=== PATIENT | male | born 1980 | race Two or more races ===

== ENCOUNTER 2018-07-04 16:21 | Emergency (ER) | payer MEDICAID ==
[~2018-07-04] VITALS: Ht 180.3 cm; Wt 77.1 kg
[2018-07-04] MEDS ORDERED: NKM (16:27)
[2018-07-04 16:32] VITALS: BP 125/85
--- NOTE | 2018-07-04 16:34 | NUR ---
ED Nurse Note: Patient walked into ED c/o of a headache that has been going for 3 days now, patient states that it happened as soon as the patient was getting a blood draw and has barely ate ever since, patient locates his pain towards the side of his temples. denies any loss of vision, just a throbbing pain
[2018-07-04] MEDS ORDERED: Ketorolac 30mg Inj IM ONE (16:45)
--- NOTE | 2018-07-04 16:51 | Emergency Room Report ---
History of Present Illness General Chief Complaint: Headache Source: Patient Present Illness HPI 38-year-old male patient presents the ER complaining of headache for the past 3 days. Patient reports that the headache is in his bilateral temples and radiates to his neck. Reports "I think I am having a migraine". Reports nausea and vomiting during this time. Reports no vomiting up food, states able to tolerate p.o. fluids. Denies hematemesis or coffee-ground emesis. Denies fever. Denies recent travel outside the country. Reports photophobia. Denies vision changes. Denies phonophobia. Denies fever, chest pain, shortness of breath. Denies history of diabetes or kidney disease. Denies drug use. Denies dysuria, hematuria. Denies history of high blood pressure. Denies history of seizures. States has taken Excedrin without relief of symptoms. Reports hx of similar VU in the past. Allergies: Coded Allergies: No Known Allergies (Unverified , 07/04/18) Patient History Past Medical History: see triage record Reviewed Nursing Documentation: PMH: Agreed; PSxH: Agreed Nursing Documentation-PMH Past Medical History: No History, Except For Review of Systems All Other Systems: negative except mentioned in HPI Physical Exam Vital Signs Date Time Temp Pulse Resp B/P (MAP) Pulse Ox O2 Delivery O2 Flow Rate FiO2 07/04/18 16:25 97.9 98 17 130/88 96 Room Air Sp02 EP Interpretation: reviewed, normal General Appearance: well appearing, no apparent distress, alert, GCS 15, non- toxic Head: normocephalic, atraumatic, other - no TTP over maxillary or frontal sinuses Eyes: bilateral eye normal inspection, bilateral eye PERRL ENT: hearing grossly normal, normal pharynx, no angioedema, normal voice, uvula midline, moist mucus membranes Neck: full range of motion, no meningismus, no bony tend Respiratory: lungs clear, normal breath sounds, no rhonchi, no respiratory distress, no accessory muscle use, no wheezing, speaking full sentences Cardiovascular #1: regular rate, rhythm, no edema Gastrointestinal: non tender, soft, no mass, non-distended, no guarding, no rebound Genitourinary: no CVA tenderness Musculoskeletal: back normal, digits/nails normal, gait/station normal, normal range of motion, non-tender Neurologic: alert, oriented x3, responsive, waiter/waitress tourist class III-XII nml as tested, motor strength/tone normal, sensory intact, cerebellar normal, normal gait, speech normal, other - Negative Kernig, negative Brudzinski Psychiatric: mood/affect normal Skin: no rash Lymphatic: no adenopathy Medical Decision Making PA Attestation Dr. Rosales is my supervising Physician whom patient management has been discussed with. Diagnostic Impression: Primary Impression: Headache ER Course Pt presents to ED c/o headache. DDX considered but are not limited to migraine, cluster VU, tension VU, meningitis, ICH, influenza, SAH. Negative Kernig, negative Brudzinski, patient afebrile, low suspicion for meningitis. No focal neuro deficits, cranial nerves intact as tested, low suspicion for SAH , does not require CT head at this time. VITAL SIGNS are WNL, patient is afebrile ER COURSE Provide patient with Toradol, Reglan, Benadryl and ice pack. Patient reports pain symptoms improved while in the ER. Reports neck pain symptoms improved. Patient reports pain improved. Patient is AOx3, neurologically intact, nontoxic appearing, and ambulatory. DISCHARGE: -Rx provided Fioricet At this time pt is stable for d/c to home. Patient is resting comfortably, in no acute distress, nontoxic appearing, talking and smiling. Will provide with patient care instructions and any necessary prescriptions. Patient to take medication as instructed. Care plan and follow-up instructions provided. Patient questions asked and answered. Patient instructed to follow-up with primary care provider in the next 3 days and discuss further referral with PCP to neurologist. ER precautions given. Patient instructed to return to ER immediately for any new or worsening of symptoms including but not limited to fever, neck stiffness , vision changes, and neurological symptoms. - Please note that this Emergency Department Report was dictated using [employer] strategic sourcing technology software, occasionally this can lead to erroneous entry secondary to interpretation by the dictation equipment. Last Vital Signs Date Time Temp Pulse Resp B/P (MAP) Pulse Ox O2 Delivery O2 Flow Rate FiO2 07/04/18 16:32 97.9 82 17 125/85 96 Room Air Status: improved Disposition: HOME, SELF-CARE Condition: Stable Scripts Acetamin/Butalbital/Caffeine* (FIORICET*) 1 Ea Tab 1 TAB ORAL Q6H, #15 TAB 0 Refills Prov: Abisai Foley 07/04/18 Patient Instructions: General Headache Without Cause, Migraine Headache Additional Instructions: Followup with primary care provider in 3 -5 days. Discussed referral to neuro for headache symptoms. Take medications as directed. Patient questions asked and answered. ER precautions given, patient instructed to return to ER immediately for any new or worsening of symptoms. Abisai Foley Jul 04, 2018 16:51
--- NOTE | 2018-07-04 17:34 | NUR ---
ED Nurse Note: no change in pain/migrain, Butch HERNANDEZ made aware.
[2018-07-04] MEDS ORDERED: FIORICET1 EA ORAL (18:01)
[2018-07-04 18:09] VITALS: BP 125/85
--- NOTE | 2018-07-04 18:09 | NUR ---
ED Nurse Note: PT is medically cleared per ERMD order. pt is stable for transfer. pt status condition and vital signs are reported to ERMD prior to DC. pt vital signs are stable. pt is alert and oriented times 4. pt left with all belongings, including DC notes and prescriptions. pt was able to teach back and understands DC notes and prescription. pt is instructed to follow up with primary MD as soon as possible, pt is instructed to return to ER if any variance in condition. ID band removed
== END 2018-07-04 18:15 | disposition home or self-care (01) ==
LOC: EMR 18:10
DX: R51 Headache (principal)
CPT/HCPCS: 96372; 99283; J1885

== ENCOUNTER 2019-12-10 11:15 | Emergency (ER) | payer MEDICAID ==
[~2019-12-10] VITALS: Ht 180.3 cm; Wt 77.1 kg
[~2019-12-10 11:15] MED LIST: FIORICET1 EA ORAL; NKM
[2019-12-10 11:24] VITALS: BP 127/88
[2019-12-10] MEDS ORDERED: GABAPENTIN600 MG ORAL (11:26)
--- NOTE | 2019-12-10 11:34 | NUR ---
ED Nurse Note: Pt from home walked in due to left flank pain with blood tinged urine that started last night. Pt reports that when he urinates it feels that there is sharp pain coming out from urine. Denies fever or chills. AAO x4, ambulatory with non labored breathing.
--- NOTE | 2019-12-10 11:43 | Emergency Room Report ---
History of Present Illness General Chief Complaint: Male Urogenital Problems Source: Patient Present Illness [facility] Disclaimer: Please note that this report is being documented using [employer] technology. This can lead to erroneous entry secondary to incorrect interpretation by the dictating instrument. HPI: 39-year-old male presents for evaluation of flank pain. Symptoms present 2 days. He noted an aching and then sharp pain over the left flank that radiated in the left groin. He noted pain with urination over the past few days as well sweats without objective fever readings. Denies pain in the testicles or testicular injury. Reports dark blood-tinged urine. Reports nausea and intermittent vomiting though is able to still eat and drink. Denies diarrhea. Denies chest pain, shortness of breath, recent sick contacts, URI symptoms. No prior history of abdominal surgeries. No prior history of kidney stones though there is a family history. Denies alcohol or drug use. Denies other medical conditions. No exacerbating relieving factors. Pains appears to be getting worse. 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 EOMI. Cardiovascular: RRR. S1 and S2 normal. No murmur appreciated Resp: Normal work of breathing. No cough, wheezing or crackles appreciated Abdomen: Abdomen is soft, nondistended. Tenderness palpation in the left lower quadrant left groin without rebound or mass. Left-sided flank tenderness with percussion. No tenderness in the upper quadrants or the right lower quadrant or right flank. Skin: Intact. No abrasions, laceration or rash over the exposed skin MSK: Normal tone and bulk. Moving all extremities. No obvious deformity. Neuro: Awake and alert. Mentating appropriately. Medical Decision Making Diagnostic Impression: Primary Impression: Colitis Additional Impressions: Nephrolithiasis Prostatitis ER Course This a 39-year-old male presenting for evaluation of 2 days worsening left- sided flank pain and dysuria. Differential includes was not limited to nephrolithiasis, pyelonephritis, cystitis, pancreatitis, gastritis, gastroenteritis, cholecystitis, bowel obstruction, gas, hernia. History and physical exam most consistent with nephrolithiasis will obtain a noncontrast CT scan as well as broad labs. Patient was given IV fluids, antiemetics, Toradol. 1400: CT did not find acute evidence of nephrolithiasis however there was blood in his urine. The prostate was noted to be enlarged and the patient reports some recent urinary hesitancy and dysuria but this had resolved. He is monogamous with one sexual partner and denies any STI symptoms. There is also noted to be some colonic thickening in the distal colon center for either colitis or possible neoplasm. The appendix was noted to be prominent however the patient has no clinical signs of appendicitis. He is feeling better after receiving medication for his pain. Patient will be treated with IM Rocephin, oral Zithromax and continued on ciprofloxacin for prostatitis possibly colitis. Patient is here to establish a primary care provider but knows when in the area and will be seen as soon as possible. I instructed him to ask for referral to urology regarding his prostate and gastroenterology regarding the CT findings. Copies of his labs imaging were provided in his discharge paperwork. He stable for outpatient follow-up. Instructed to return with any new or worsening symptoms. Laboratory Tests Test 12/10/19 12:00 White Blood Count 7.9 K/UL (4.8-10.8) Red Blood Count 5.61 M/UL (4.70-6.10) Hemoglobin 16.5 G/DL (14.2-18.0) Hematocrit 50.7 % (42.0-52.0) Mean Corpuscular Volume 90 FL (80-99) Mean Corpuscular Hemoglobin 29.5 PG (27.0-31.0) Mean Corpuscular Hemoglobin Concent 32.7 G/DL (32.0-36.0) Red Cell Distribution Width 11.6 % (11.6-14.8) Platelet Count 177 K/UL (150-450) Mean Platelet Volume 7.7 FL (6.5-10.1) Neutrophils (%) (Auto) 60.0 % (45.0-75.0) Lymphocytes (%) (Auto) 24.6 % (20.0-45.0) Monocytes (%) (Auto) 12.6 % (1.0-10.0) H Eosinophils (%) (Auto) 2.1 % (0.0-3.0) Basophils (%) (Auto) 0.7 % (0.0-2.0) Urine Color Yellow Urine Appearance Slightly cloudy Urine pH 5 (4.5-8.0) Urine Specific [place] 1.020 (1.005-1.035) Urine Protein 1+ (NEGATIVE) H Urine Glucose (UA) Negative (NEGATIVE) Urine Ketones Negative (NEGATIVE) Urine Blood 5+ (NEGATIVE) H Urine Nitrite Negative (NEGATIVE) Urine Bilirubin Negative (NEGATIVE) Urine Urobilinogen Normal MG/DL (0.0-1.0) Urine Leukocyte Esterase 1+ (NEGATIVE) H Urine RBC 40-60 /HPF (0 - 0) H Urine WBC 2-4 /HPF (0 - 0) Urine Squamous Epithelial Cells Occasional /LPF Urine Bacteria Occasional /HPF (NONE) Urine Mucus Many /LPF (NONE/OCC) H Sodium Level 139 MMOL/L (136-145) Potassium Level 4.3 MMOL/L (3.5-5.1) Chloride Level 103 MMOL/L (98-107) Carbon Dioxide Level 27 MMOL/L (21-32) Anion Gap 9 mmol/L (5-15) Blood Urea Nitrogen 19 mg/dL (7-18) H Creatinine 1.3 MG/DL (0.55-1.30) Estimated Glomerular Filtration Rate > 60 mL/min (>60) Glucose Level 102 MG/DL (74-106) Calcium Level 9.2 MG/DL (8.5-10.1) Total Bilirubin 0.6 MG/DL (0.2-1.0) Aspartate Amino Transferase (AST) 64 U/L (15-37) H Alanine Aminotransferase (ALT) 189 U/L (12-78) H Alkaline Phosphatase 57 U/L (46-116) Total Protein 8.0 G/DL (6.4-8.2) Albumin 4.6 G/DL (3.4-5.0) Globulin 3.4 g/dL Albumin/Globulin Ratio 1.4 (1.0-2.7) Lipase 115 U/L (73-393) CT/MRI/US Diagnostic Results CT/MRI/US Diagnostic Results : Impression Procedure: CT Abdomen Pelvis WO Contrast Indication: Flank pain Technique: Spiral acquisitions obtained through the abdomen and pelvis. No oral or IV contrast utilized, per urinary stone protocol. Multiplanar reconstructions were generated. Total dose length product 225 mGycm. CTDIvol(s) 4 mGy. Dose reduction achieved using automated exposure control Comparison: none Findings: No renal or ureteral calculi, hydronephrosis, or hydroureter demonstrated. Lack of IV contrast limits assessment of the renal parenchyma. No definite renal parenchymal mass or cyst demonstrated. The prostate is enlarged, measuring 4.9 cm transverse dimension. There is focal thickening of the distal descending colon wall. There is some surrounding infiltration of the periappendiceal fat. The proximal and distal ends of the area of thickening are fairly well marginated. The appendix is prominent in caliber, appears to be filled with dense material likely representing multiple appendicoliths. It measures proximally C7 millimeters in diameter. There is equivocal very slight infiltration of the periappendiceal fat. A few gas bubbles are seen within the appendiceal lumen. No evidence of colonic diverticulosis or diverticulitis. No small bowel distention. No free or loculated intraperitoneal gas or fluid is evident. Lack of IV contrast limits assessment of the other solid organs. The liver, gallbladder, bile ducts, pancreas, spleen, adrenals are unremarkable. No retroperitoneal or mesenteric mass or adenopathy. No pelvic mass or adenopathy. Minimal atelectatic changes are seen at the lung bases. Impression: Wall thickening of the distal colon. This is suspicious for colitis. Given the somewhat focal nature and well-defined margins, the possibility of neoplasm should also be considered. Negative for evidence of urinary stone disease Prominent prostate, unusually prominent for age. Prominent appendix containing numerous appendicoliths. Doubt but cannot exclude early acute appendicitis. Correlate with clinical findings. Findings discussed by phone with Dr. Olmedo in the emergency room at the time of interpretation The CT scanner at [facility] is accredited by the [employer] and the scans are performed using protocols designed to limit radiation exposure to as low as reasonably achievable to attain images of sufficient resolution adequate for diagnostic evaluation. Dictated By: Kamaljit Devlin MD Electronically Signed By: Kamaljit Devlin MD Signed Date/Time 12/10/19 1402 CC: Bin Olmedo MD Last Vital Signs Date Time Temp Pulse Resp B/P (MAP) Pulse Ox O2 Delivery O2 Flow Rate FiO2 12/10/19 11:24 98.4 110 19 127/88 (101) 99 Disposition: HOME, SELF-CARE Condition: Stable Scripts Ciprofloxacin Hcl* (CIPROFLOXACIN HCL*) 500 Mg Tablet 500 MG ORAL Q12H for 14 Days, #28 TAB 0 Refills Prov: Bin Olmedo MD 12/10/19 Hydrocodone Bit/Acetaminophen 5-325* (NORCO 5-325 TABLET*) 1 Each Tablet 1 TAB ORAL Q6H PRN for FOR PAIN, #10 TAB 0 Refills Prov: Bin Olmedo MD 12/10/19 Ibuprofen* (MOTRIN*) 600 Mg Tablet 600 MG ORAL Q6H PRN for For Pain, #30 TAB 0 Refills Prov: Bin Olmedo MD 12/10/19 Tamsulosin HCl (Flomax) 0.4 Mg Cap.er.24h 0.4 MG ORAL DAILY for 5 Days, #5 CAP Prov: Bin Olmedo MD 12/10/19 Bin Olmedo MD Dec 10, 2019 11:43
[2019-12-10] MEDS ORDERED: Ketorolac 30mg Inj IV ONE (11:45)
--- NOTE | 2019-12-10 12:08 | NUR ---
ED Nurse Note: Blood and urine collected then sent.
[2019-12-10 12:09] LABS: APPEARANCE,URINE SLIGHTLY CLOUDY; BILIRUBIN, URINE NEGATIVE (NEGATIVE); COLOR,URINE YELLOW; GLUCOSE, URINE (UA) NEGATIVE (NEGATIVE); KETONES,URINE NEGATIVE (NEGATIVE); LEUKOCYTE ESTERASE ,URINE 1+ (NEGATIVE); NITRITE,URINE NEGATIVE (NEGATIVE); PH,URINE 5 (4.5-8.0); PROTEIN,URINE 1+ (NEGATIVE); UROBILINOGEN,URINE NORMAL MG/DL (0.0-1.0)
[2019-12-10 12:11] LABS: BASOPHILS % (AUTO) 0.7 % (0.0-2.0); EOSINOPHILS % (AUTO) 2.1 % (0.0-3.0); HEMATOCRIT 50.7 % (42.0-52.0); HEMOGLOBIN 16.5 G/DL (14.2-18.0); LYMPHOCYTES % (AUTO) 24.6 % (20.0-45.0); MEAN CORPUSCULAR VOLUME 90 FL (80-99); MONOCYTES % (AUTO) 12.6 % (1.0-10.0); PLATELET COUNT 177 K/UL (150-450); RED BLOOD COUNT 5.61 M/UL (4.70-6.10); RED CELL DISTRIBUTION WIDTH 11.6 % (11.6-14.8); WHITE BLOOD COUNT 7.9 K/UL (4.8-10.8)
[2019-12-10 12:24] LABS: ANION GAP 9 mmol/L (5-15); BLOOD UREA NITROGEN 19 mg/dL (7-18); CALCIUM 9.2 MG/DL (8.5-10.1); CARBON DIOXIDE 27 MMOL/L (21-32); CHLORIDE 103 MMOL/L (98-107); CREATININE 1.3 MG/DL (0.55-1.30); POTASSIUM 4.3 MMOL/L (3.5-5.1); SODIUM 139 MMOL/L (136-145)
[2019-12-10 12:30] LABS: ALANINE AMINOTRANSFERASE 189 U/L (12-78); ALBUMIN 4.6 G/DL (3.4-5.0); ALBUMIN/GLOBULIN RATIO 1.4 (1.0-2.7); ALKALINE PHOSPHATASE 57 U/L (46-116); ASPARTATE AMINO TRANSFERASE 64 U/L (15-37); BILIRUBIN,TOTAL 0.6 MG/DL (0.2-1.0)
[2019-12-10 13:35] VITALS: BP 134/72
[2019-12-10] MEDS ORDERED: NORCO 5-325 TA1 EAC1 ORAL (13:53)
[2019-12-10] MEDS ORDERED: IBUPROFEN600 M1 ORAL (13:53)
[2019-12-10] MEDS ORDERED: FLOMAX0.4 MG ORAL (13:53)
[2019-12-10] MEDS ORDERED: Morphine Sulfate 2mg/ml Inj(IV/IM USE ONLY) IM ONE (14:00)
--- NOTE | 2019-12-10 14:08 | Diagnostic Imaging Report ---
Indication: Flank pain Technique: Spiral acquisitions obtained through the abdomen and pelvis. No oral or IV contrast utilized, per urinary stone protocol. Multiplanar reconstructions were generated. Total dose length product 225 mGycm. CTDIvol(s) 4 mGy. Dose reduction achieved using automated exposure control Comparison: none Findings: No renal or ureteral calculi, hydronephrosis, or hydroureter demonstrated. Lack of IV contrast limits assessment of the renal parenchyma. No definite renal parenchymal mass or cyst demonstrated. The prostate is enlarged, measuring 4.9 cm transverse dimension. There is focal thickening of the distal descending colon wall. There is some surrounding infiltration of the periappendiceal fat. The proximal and distal ends of the area of thickening are fairly well marginated. The appendix is prominent in caliber, appears to be filled with dense material likely representing multiple appendicoliths. It measures proximally C7 millimeters in diameter. There is equivocal very slight infiltration of the periappendiceal fat. A few gas bubbles are seen within the appendiceal lumen. No evidence of colonic diverticulosis or diverticulitis. No small bowel distention. No free or loculated intraperitoneal gas or fluid is evident. Lack of IV contrast limits assessment of the other solid organs. The liver, gallbladder, bile ducts, pancreas, spleen, adrenals are unremarkable. No retroperitoneal or mesenteric mass or adenopathy. No pelvic mass or adenopathy. Minimal atelectatic changes are seen at the lung bases. Impression: Wall thickening of the distal colon. This is suspicious for colitis. Given the somewhat focal nature and well-defined margins, the possibility of neoplasm should also be considered. Negative for evidence of urinary stone disease Prominent prostate, unusually prominent for age. Prominent appendix containing numerous appendicoliths. Doubt but cannot exclude early acute appendicitis. Correlate with clinical findings. Findings discussed by phone with Dr. Olmedo in the emergency room at the time of interpretation The CT scanner at [facility] is accredited by the [employer] and the scans are performed using protocols designed to limit radiation exposure to as low as reasonably achievable to attain images of sufficient resolution adequate for diagnostic evaluation.
[2019-12-10] MEDS ORDERED: CIPROFLOXACIN500 M2 ORAL (14:20)
[2019-12-10] MEDS ORDERED: Lidocaine 1% MPF 10mg/ml 5ml INJ ONE (14:30)
[2019-12-10] MEDS ORDERED: Azithromycin 250mg tab ORAL ONE (14:30)
[2019-12-10 14:38] VITALS: BP 135/77
--- NOTE | 2019-12-10 14:38 | NUR ---
ER DISCHARGE NOTE: Patient is cleared to be discharged per ERMD, pt is aox4, on room air, with stable vital signs. pt was given dc and prescription instructions, pt was able to verbalize understanding, pt id band and iv site removed without complications. pt is able to ambulate with steady gait. pt took all belongings.
== END 2019-12-10 14:38 | disposition home or self-care (01) ==
LOC: EMR 12:00
DX: K52.9 Noninfective gastroenteritis and colitis, unspecified (principal); N20.0 Calculus of kidney; N41.9 Inflammatory disease of prostate, unspecified
CPT/HCPCS: 36415; 74176; 80053; 81003; 83690; 85025; 96372; 96374; 96375; J0696; J1885; J2270; J2405; Q0144; Z7502; 99284

== ENCOUNTER 2020-02-09 06:32 | Emergency (ER) | payer MEDICAID ==
[~2020-02-09] VITALS: Ht 180.3 cm; Wt 68.0 kg
[~2020-02-09 06:32] MED LIST changes: +CIPROFLOXACIN500 M2 ORAL; +FLOMAX0.4 MG ORAL; +GABAPENTIN600 MG ORAL; +IBUPROFEN600 M1 ORAL; +NORCO 5-325 TA1 EAC1 ORAL
--- NOTE | 2020-02-09 07:00 | NUR ---
ED Nurse Note: Recieved pt from [facility], here with c/o abdominal pain at 8/10 since am, pt has hx of kidney stones, also reporting hematuria, denies nausea, vomiting, fevers or chest pain, no sob or labored breathing noted, pt assisted with urine, hematuria noted, specimen sent, also assisted to monitoring and IV line, will resume care as ordered and continue to closely monitor.
--- NOTE | 2020-02-09 07:05 | Emergency Room Report ---
History of Present Illness General Chief Complaint: Abdominal Pain Source: Patient Present Illness HPI Disclaimer: Please note that this report is being documented using [email or web address] technology. This can lead to erroneous entry secondary to incorrect interpretation by the dictating instrument. HPI: 39-year-old male presents for evaluation of left-sided flank pain and hematuria. Seen in the emergency department December 09 with similar complaints. No stone was identified on CT but there was microscopic hematuria. There is also suspicion for colitis versus possible neoplasm, evidence of a prominent prostate. He was treated for prostatitis with antibiotics and states his symptoms were resolved for several weeks. They returned approximately 2 weeks ago. He reports persistent hematuria, dysuria, difficulty initiating urination. Reports low-grade fevers. He has a history of chronic diarrhea, no change in output. Reports some pain in the left testicle. Cannot recall trauma. Denies nausea, vomiting, chest pain, shortness of breath. Has not yet followed up with PMD as he was planning on moving to [place] however he will now remain in the area. PMH: Reviewed PSH: Reviewed Allergies: Reviewed Social Hx: Substance abuse history, awaiting placement at rehab facility Allergies: Coded Allergies: No Known Allergies (Unverified , 07/04/18) COVID-19 Screening Contact w/high risk pt: No Recent Travel to affected area: No Experienced COVID-19 symptoms?: No COVID-19 Testing performed [employer]: No Review of Systems All Other Systems: negative except mentioned in HPI Physical Exam Vital Signs Date Time Temp Pulse Resp B/P (MAP) Pulse Ox O2 Delivery O2 Flow Rate FiO2 02/09/20 06:37 98.2 87 16 125/86 (99) 97 Room Air General: Awake and alert, no acute distress HEENT: NC/AT. EOMI. Cardiovascular: RRR. S1 and S2 normal. No murmur appreciated Resp: Normal work of breathing. No cough, wheezing or crackles appreciated Abdomen: Abdomen is soft, nondistended. Nontender : Testicles in anatomic position. No unilateral edema or skin breakdown. Mild tenderness over the left testicle without palpable mass. Skin: Intact. No abrasions, laceration or rash over the exposed skin MSK: Normal tone and bulk. Moving all extremities. No obvious deformity. Neuro: Awake and alert. Mentating appropriately. Medical Decision Making Diagnostic Impression: Primary Impression: Hematuria Additional Impressions: Enlarged prostate Epididymitis ER Course 39-year-old male presents for evaluation of hematuria and left-sided flank pain. Differential includes but is not limited to cystitis, pyelonephritis, nephrolithiasis, neoplastic mass, epididymitis, prostatitis to name a few. Labs and CT were obtained. Renal function within normal limits and there is both red cells and positive hemoglobin on urinalysis there is no evidence of acute urinary tract infection. A CT scan with contrast was obtained which did not show evidence of neoplastic process or mass or other abnormalities. Noted prominent mesenteric root nodes though not frankly enlarged as well as mildly enlarged prostate similar to prior scan. Patient reported feeling better throughout his emergency department stay. Had plan to perform ultrasound of the patient's testicles as he had some tenderness in the left testicle however the patient states he could no longer stay in the emergency department had a prior obligation to that he had to attend at this moment. He was requesting antibiotics stating that his symptoms were resolved after treated with doxycycline on his last visit. He was referred to outpatient urologist and nephrology and started on doxycycline after an IM dose of Rocephin given prior to discharge. Instructed to follow-up with PMD and urology. Instructed to return with new or worsening symptoms. He understands and agrees with this treatment plan. Laboratory Tests Test 02/09/20 06:30 02/09/20 06:50 02/09/20 08:46 Urine Opiates Screen Negative (NEGATIVE) Urine Barbiturates Screen Negative (NEGATIVE) Phencyclidine (PCP) Screen Negative (NEGATIVE) Urine Amphetamines Screen Positive (NEGATIVE) H Urine Benzodiazepines Screen Positive (NEGATIVE) H Urine Cocaine Screen Negative (NEGATIVE) Urine Marijuana (THC) Screen Negative (NEGATIVE) Urine Color Brown Urine Appearance Slightly cloudy Urine pH 5 (4.5-8.0) Urine Specific [place] 1.015 (1.005-1.035) Urine Protein 2+ (NEGATIVE) H Urine Glucose (UA) Negative (NEGATIVE) Urine Ketones Negative (NEGATIVE) Urine Blood 5+ (NEGATIVE) H Urine Nitrite Negative (NEGATIVE) Urine Bilirubin Negative (NEGATIVE) Urine Urobilinogen Normal MG/DL (0.0-1.0) Urine Leukocyte Esterase 1+ (NEGATIVE) H Urine RBC Tntc /HPF (0 - 0) H Urine WBC 0-2 /HPF (0 - 0) Urine Squamous Epithelial Cells Occasional /LPF Urine Bacteria Occasional /HPF (NONE) White Blood Count 5.7 K/UL (4.8-10.8) Red Blood Count 4.90 M/UL (4.70-6.10) Hemoglobin 14.9 G/DL (14.2-18.0) Hematocrit 43.7 % (42.0-52.0) Mean Corpuscular Volume 89 FL (80-99) Mean Corpuscular Hemoglobin 30.4 PG (27.0-31.0) Mean Corpuscular Hemoglobin Concent 34.0 G/DL (32.0-36.0) Red Cell Distribution Width 10.8 % (11.6-14.8) L Platelet Count 149 K/UL (150-450) L Mean Platelet Volume 7.3 FL (6.5-10.1) Neutrophils (%) (Auto) 50.6 % (45.0-75.0) Lymphocytes (%) (Auto) 35.5 % (20.0-45.0) Monocytes (%) (Auto) 9.7 % (1.0-10.0) Eosinophils (%) (Auto) 3.2 % (0.0-3.0) H Basophils (%) (Auto) 0.9 % (0.0-2.0) Sodium Level 142 MMOL/L (136-145) Potassium Level 4.0 MMOL/L (3.5-5.1) Chloride Level 105 MMOL/L (98-107) Carbon Dioxide Level 27 MMOL/L (21-32) Blood Urea Nitrogen 23 mg/dL (7-18) H Creatinine 1.1 MG/DL (0.55-1.30) Estimated Glomerular Filtration Rate > 60 mL/min (>60) Glucose Level 97 MG/DL (74-106) Calcium Level 9.2 MG/DL (8.5-10.1) Total Bilirubin 0.7 MG/DL (0.2-1.0) Aspartate Amino Transferase (AST) 57 U/L (15-37) H Alanine Aminotransferase (ALT) 125 U/L (12-78) H Alkaline Phosphatase 49 U/L (46-116) Total Protein 7.2 G/DL (6.4-8.2) Albumin 4.0 G/DL (3.4-5.0) Globulin 3.2 g/dL Albumin/Globulin Ratio 1.3 (1.0-2.7) Lipase 102 U/L (73-393) CT/MRI/US Diagnostic Results CT/MRI/US Diagnostic Results : Impression Impression: Mild prostatomegaly. Also previously reported. Otherwise, unremarkable urinary tract without findings to explain stated clinical history of hematuria and flank pain. Previously demonstrated distal descending and proximal sigmoid colon wall thickening have resolved Nonspecific prominent but not frankly enlarged mesenteric root nodes. Right lung base air cyst Dictated By: Kamaljit Devlin MD Electronically Signed By: Kamaljit Devlin MD Signed Date/Time 02/09/20 1048 CC: Bin Olmedo MD Last Vital Signs Date Time Temp Pulse Resp B/P (MAP) Pulse Ox O2 Delivery O2 Flow Rate FiO2 02/09/20 06:55 87 16 Room Air 02/09/20 06:37 98.2 125/86 (99) 97 Disposition: HOME, SELF-CARE Condition: Stable Scripts Doxycycline Monohydrate* (DOXYCYCLINE MONOHYDRATE*) 100 Mg Capsule 100 MG ORAL Q12H for 10 Days, #20 CAP 0 Refills Prov: Bin Olmedo MD 02/09/20 Bin Olmedo MD Feb 09, 2020 07:05
[2020-02-09 07:15] VITALS: BP 125/86
[2020-02-09] MEDS ORDERED: Omnipaque-300 100ml vial INJ PRN (07:15)
[2020-02-09] MEDS ORDERED: Morphine Sulfate 4mg/ml Inj (IV USE ONLY) IVP ONE (07:15)
[2020-02-09 07:17] LABS: APPEARANCE,URINE SLIGHTLY CLOUDY; BILIRUBIN, URINE NEGATIVE (NEGATIVE); GLUCOSE, URINE (UA) NEGATIVE (NEGATIVE); KETONES,URINE NEGATIVE (NEGATIVE); LEUKOCYTE ESTERASE ,URINE 1+ (NEGATIVE); NITRITE,URINE NEGATIVE (NEGATIVE); PH,URINE 5 (4.5-8.0); PROTEIN,URINE 2+ (NEGATIVE); UROBILINOGEN,URINE NORMAL MG/DL (0.0-1.0)
[2020-02-09 07:37] LABS: COLOR,URINE BROWN
[2020-02-09 08:56] LABS: BASOPHILS % (AUTO) 0.9 % (0.0-2.0); EOSINOPHILS % (AUTO) 3.2 % (0.0-3.0); HEMATOCRIT 43.7 % (42.0-52.0); HEMOGLOBIN 14.9 G/DL (14.2-18.0); LYMPHOCYTES % (AUTO) 35.5 % (20.0-45.0); MEAN CORPUSCULAR VOLUME 89 FL (80-99); MONOCYTES % (AUTO) 9.7 % (1.0-10.0); NEUTROPHILS % (AUTO) 50.6 % (45.0-75.0); PLATELET COUNT 149 K/UL (150-450); RED CELL DISTRIBUTION WIDTH 10.8 % (11.6-14.8); WHITE BLOOD COUNT 5.7 K/UL (4.8-10.8)
[2020-02-09 09:10] LABS: ALANINE AMINOTRANSFERASE 125 U/L (12-78); ALBUMIN/GLOBULIN RATIO 1.3 (1.0-2.7); ALKALINE PHOSPHATASE 49 U/L (46-116); ASPARTATE AMINO TRANSFERASE 57 U/L (15-37); BILIRUBIN,TOTAL 0.7 MG/DL (0.2-1.0); BLOOD UREA NITROGEN 23 mg/dL (7-18); CALCIUM 9.2 MG/DL (8.5-10.1); CHLORIDE 105 MMOL/L (98-107); CREATININE 1.1 MG/DL (0.55-1.30); SODIUM 142 MMOL/L (136-145)
[2020-02-09 09:15] LABS: CARBON DIOXIDE 27 MMOL/L (21-32)
[2020-02-09] MEDS ORDERED: Ketorolac 30mg Inj IV ONE (09:30)
--- NOTE | 2020-02-09 09:46 | NUR ---
ED Nurse Note: patient was taken to CT via [facility]
--- NOTE | 2020-02-09 09:55 | NUR ---
ED Nurse Note: patient is back from CT, NAD noted.
--- NOTE | 2020-02-09 10:53 | Diagnostic Imaging Report ---
Indication: Left-sided flank pain and hematuria Technique: Noncontrast spiral acquisitions obtained through the abdomen and pelvis. IV administration nonionic contrast. No oral contrast, per protocol. Multiphasic spiral acquisitions obtained through the abdomen and pelvis Multiplanar reconstructions were generated. Total dose length product 733 mGycm. CTDIvol(s) 4, 2, 78, 3, 4, 4 mGy. Radiation dose was minimized using automated exposure control Comparison: Noncontrast CT dated 12/10/2019 Findings: Precontrast images demonstrate on the precontrast images, no renal or ureteral calculi are evident. No hydronephrosis nor hydroureter. No renal parenchymal abnormality demonstrated. No evidence of mass or unusual renal contrast enhancement. The collecting systems are unremarkable. The ureters are unremarkable. The prostate is mildly enlarged, as previously. The bladder is unremarkable. The liver, gallbladder, bile ducts, pancreas, spleen, adrenals are unremarkable. No retroperitoneal or mesenteric mass or adenopathy. No pelvic mass or adenopathy. No evidence of diverticulosis or diverticulitis. Previously demonstrated distal descending/proximal sigmoid colon wall thickening is no longer evident. Unremarkable and unchanged appendix. No small bowel distention. No free or loculated intraperitoneal gas or fluid is evident. There are prominent but not frankly enlarged mesenteric root lymph nodes noted. The distal esophagus, stomach, duodenum are unremarkable. The included lung bases demonstrate an air cyst at the right lung base. This is not evident on the prior exam, probably excluded from the previous imaging volume. The bones are unremarkable. There are some posterior dependent atelectatic changes noted. Impression: Mild prostatomegaly. Also previously reported. Otherwise, unremarkable urinary tract without findings to explain stated clinical history of hematuria and flank pain. Previously demonstrated distal descending and proximal sigmoid colon wall thickening have resolved Nonspecific prominent but not frankly enlarged mesenteric root nodes. Right lung base air cyst The CT scanner at [facility] is accredited by the [employer] and the scans are performed using protocols designed to limit radiation exposure to as low as reasonably achievable to attain images of sufficient resolution adequate for diagnostic evaluation.
[2020-02-09] MEDS ORDERED: DOXYCYCLINE MO100 MG ORAL (11:26)
[2020-02-09 11:41] VITALS: BP 125/86
[2020-02-09] MEDS ORDERED: Lidocaine 1% MPF 10mg/ml 5ml INJ ONE (11:45)
== END 2020-02-09 11:41 | disposition home or self-care (01) ==
LOC: EMR 06:45
DX: R31.9 Hematuria, unspecified (principal); N40.0 Benign prostatic hyperplasia without lower urinary tract symptoms; N45.1 Epididymitis; J98.4 Other disorders of lung
CPT/HCPCS: 36415; 74178; 80053; 80307; 81003; 83690; 85025; 96361; 96372; 96374; 96375; J0696; J1885; J2270; J7030; Q9965; Z7502; 99284